=== PATIENT | male | born 1950 | race Caucasian/White ===

== ENCOUNTER → 2019-12-22 | Outpatient (CLI) | payer OTHER ==
[2019-12-22 08:01] LABS: Basophils # (auto) 0.1 10 ^3/uL (0-0.2); Basophils % (auto) 1.1 % (0.0-2.0); Eosinophils # (auto) 0.2 10 ^3/uL (0-0.8); Eosinophils % (auto) 3.8 % (0.0-7.0); Hemoglobin 15.9 g/dL (13.5-17.5); Lymphocytes # (auto) 1.4 10 ^3/uL (0.4-5.4); Lymphocytes % (auto) 29.4 % (10.0-50.0); Mean Corpuscular Hemoglobin 31.8 pg (28.0-32.0); Mean Corpuscular Hgb Conc. 33.7 g/dL (32.0-36.0); Mean Corpuscular Volume 94.2 fL (80.0-100.0); Monocytes # (auto) 0.6 10 ^3/uL (0-1.3); Monocytes % (auto) 12.3 % (0.0-12.0); Neutrophils # (auto) 2.5 10 ^3/uL (1.6-8.6); Neutrophils % (auto) 53.4 % (37.0-80.0); Nucleated Red Blood Cells % 0.1 %; Platelet Count (auto) 182 10^3/uL (140-450); Red Blood Cells 4.99 10^6/uL (4.5-5.90); White Blood Cell 4.7 10^3/uL (4.4-10.8)
[2019-12-22 08:37] LABS: Albumin 3.6 g/dL (3.4-5.0); Calcium 8.7 mg/dL (8.5-10.1); Potassium 4.1 mmol/L (3.5-5.1)
[2019-12-22 08:43] LABS: BUN/Creatinine Ratio 15.1; Bilirubin, Total 0.6 mg/dL (0.2-1.0); Total Protein 6.9 g/dL (6.4-8.2)
== END | disposition home or self-care (01) ==
LOC: LAB 07:22
PROVIDERS: ATTEND Internal Medicine
DX: Z12.5 Encounter for screening for malignant neoplasm of prostate (principal); E78.5 Hyperlipidemia, unspecified; Z00.00 Encounter for general adult medical examination without abnormal findings; Z86.39 Personal history of other endocrine, nutritional and metabolic disease
CPT/HCPCS: 36415; 80053; 80061; 80198; 83036; 84153; 84403; 85025; 86677

== ENCOUNTER → 2020-01-18 | Outpatient (CLI) | payer OTHER ==
[2020-01-19 16:46] LABS: Hepatitis B Surface Antigen Negative (Negative); Hepatitis C Antibody Negative (Negative)
[2020-01-19 16:47] LABS: Hepatitis A Ab IgM Negative; Hepatitis B Core IgM Negative
== END | disposition home or self-care (01) ==
LOC: LAB 10:43
PROVIDERS: ATTEND Internal Medicine
DX: R94.5 Abnormal results of liver function studies (principal)
CPT/HCPCS: 36415; 80074; 84443

== ENCOUNTER → 2020-05-07 | Outpatient (CLI) | payer OTHER ==
[2020-05-07 09:38] LABS: Potassium 3.9 mmol/L (3.5-5.1)
[2020-05-07 09:43] LABS: Albumin 3.6 g/dL (3.4-5.0); BUN/Creatinine Ratio 10.7; Calcium 8.7 mg/dL (8.5-10.1)
[2020-05-07 09:45] LABS: Bilirubin, Total 0.7 mg/dL (0.2-1.0); Total Protein 7.2 g/dL (6.4-8.2)
== END | disposition home or self-care (01) ==
LOC: LAB 07:59
PROVIDERS: ATTEND Internal Medicine
DX: E11.9 Type 2 diabetes mellitus without complications (principal); E78.5 Hyperlipidemia, unspecified; R94.5 Abnormal results of liver function studies
CPT/HCPCS: 36415; 80053; 80061; 83036

== ENCOUNTER → 2020-06-01 | Outpatient (CLI) | payer OTHER ==
[2020-06-01 08:27] LABS: Albumin 3.6 g/dL (3.4-5.0)
[2020-06-01 08:32] LABS: Bilirubin, Direct 0.3 mg/dL (0-0.2); Bilirubin, Total 0.9 mg/dL (0.2-1.0); Total Protein 7.3 g/dL (6.4-8.2)
== END | disposition home or self-care (01) ==
LOC: LAB 07:37
PROVIDERS: ATTEND Internal Medicine
DX: E11.9 Type 2 diabetes mellitus without complications (principal); E78.5 Hyperlipidemia, unspecified
CPT/HCPCS: 36415; 80061; 80076; 82043

== ENCOUNTER → 2020-06-29 | Day surgery (SDC) | payer OTHER ==
[2020-06-26 10:19] LABS: Basophils # (auto) 0 10 ^3/uL (0-0.2); Basophils % (auto) 0.7 % (0.0-2.0); Eosinophils # (auto) 0.2 10 ^3/uL (0-0.8); Eosinophils % (auto) 3.9 % (0.0-7.0); Hematocrit 46.2 % (41.0-53.0); Hemoglobin 16.3 g/dL (13.5-17.5); Lymphocytes # (auto) 1.6 10 ^3/uL (0.4-5.4); Mean Corpuscular Hemoglobin 33.3 pg (28.0-32.0); Mean Corpuscular Hgb Conc. 35.3 g/dL (32.0-36.0); Mean Corpuscular Volume 94.4 fL (80.0-100.0); Monocytes # (auto) 0.7 10 ^3/uL (0-1.3); Monocytes % (auto) 10.7 % (0.0-12.0); Neutrophils # (auto) 3.6 10 ^3/uL (1.6-8.6); Neutrophils % (auto) 58.7 % (37.0-80.0); Platelet Count (auto) 180 10^3/uL (140-450); White Blood Cell 6.2 10^3/uL (4.4-10.8)
[2020-06-26 10:23] LABS: INR 1.14 (0.9-1.15); Partial Thromboplastin Time 28.2 sec (23.0-31.2)
[~2020-06-29] VITALS: Ht 177.8 cm; Wt 98.4 kg
[~2020-06-29] MED LIST: ATOR40TA52 PO; LIDOCAINE VISCOUS 2% 15ML UD ONE; PANT40TA2 PO; SODIUM CHLORIDE LOCK 10 ML ONE
[2020-06-29] MEDS: fentaNYL CITRATE 100 MCG/2 ML VL ONE ×3 (13:56→14:10)
[2020-06-29] MEDS: MIDAZOLAM HCL 5 MG/ML-1ML VIAL ONE ×3 (13:56→14:10)
[2020-06-29] MEDS: diphenhdrAMINE HCL 50 MG/1 ML VL ONE ×2 (13:59→14:20)
[2020-06-29 15:10] VITALS: BP 123/82
== END | disposition home or self-care (01) ==
LOC: GI 11:53
PROVIDERS: ATTEND Internal Medicine Gastroenterology
DX: Z12.11 Encounter for screening for malignant neoplasm of colon (principal); K31.89 Other diseases of stomach and duodenum; K63.5 Polyp of colon; K44.9 Diaphragmatic hernia without obstruction or gangrene; K21.9 Gastro-esophageal reflux disease without esophagitis; K31.9 Disease of stomach and duodenum, unspecified; Z20.822 Contact with and (suspected) exposure to COVID-19; Z79.899 Other long term (current) drug therapy; Z98.890 Other specified postprocedural states; Z87.891 Personal history of nicotine dependence; Z68.31 Body mass index [BMI] 31.0-31.9, adult
CPT/HCPCS: 36415; 43239; 45385; 85025; 85610; 85730; J1200; J2250; J3010; J7030; U0003; 99152; 99153

== ENCOUNTER → 2020-08-01 | Outpatient (CLI) | payer OTHER ==
[~2020-08-01] MED LIST changes: -LIDOCAINE VISCOUS 2% 15ML UD ONE; -SODIUM CHLORIDE LOCK 10 ML ONE
[2020-08-01 09:25] LABS: Albumin 3.7 g/dL (3.4-5.0)
[2020-08-01 09:28] LABS: Bilirubin, Direct 0.2 mg/dL (0-0.2); Bilirubin, Total 0.7 mg/dL (0.2-1.0); Total Protein 7.1 g/dL (6.4-8.2)
== END | disposition home or self-care (01) ==
LOC: LAB 08:44
PROVIDERS: ATTEND Internal Medicine
DX: E11.9 Type 2 diabetes mellitus without complications (principal); E78.5 Hyperlipidemia, unspecified
CPT/HCPCS: 36415; 80061; 80076

== ENCOUNTER → 2020-10-26 | Outpatient (CLI) | payer OTHER ==
[2020-10-26 09:37] LABS: Basophils # (auto) 0 10 ^3/uL (0-0.2); Basophils % (auto) 0.5 % (0.0-2.0); Eosinophils # (auto) 0.1 10 ^3/uL (0-0.8); Eosinophils % (auto) 1.6 % (0.0-7.0); Hematocrit 45.7 % (41.0-53.0); Hemoglobin 15.8 g/dL (13.5-17.5); Lymphocytes # (auto) 1.1 10 ^3/uL (0.4-5.4); Lymphocytes % (auto) 28.5 % (10.0-50.0); Mean Corpuscular Hemoglobin 32.5 pg (28.0-32.0); Mean Corpuscular Hgb Conc. 34.6 g/dL (32.0-36.0); Mean Corpuscular Volume 93.9 fL (80.0-100.0); Monocytes # (auto) 0.4 10 ^3/uL (0-1.3); Neutrophils # (auto) 2.2 10 ^3/uL (1.6-8.6); Neutrophils % (auto) 58.4 % (37.0-80.0); Platelet Count (auto) 119 10^3/uL (140-450); Red Blood Cells 4.86 10^6/uL (4.5-5.90); Red Cell Distribution Width 12.9 % (11.8-14.3); White Blood Cell 3.8 10^3/uL (4.4-10.8)
[2020-10-26 10:04] LABS: INR 1.13 (0.9-1.15)
[2020-10-26 10:27] LABS: Potassium 3.8 mmol/L (3.5-5.1)
[2020-10-26 10:35] LABS: Albumin 3.5 g/dL (3.4-5.0); Bilirubin, Total 0.8 mg/dL (0.2-1.0); Calcium 8.4 mg/dL (8.5-10.1)
== END | disposition home or self-care (01) ==
LOC: LAB 08:48
PROVIDERS: ATTEND Internal Medicine
DX: E11.9 Type 2 diabetes mellitus without complications (principal); R94.5 Abnormal results of liver function studies; R10.13 Epigastric pain
CPT/HCPCS: 36415; 80053; 82105; 82140; 82728; 83036; 85025; 85049; 85610; 86038

== ENCOUNTER → 2021-08-02 | Outpatient (CLI) | payer OTHER ==
[2021-08-02 08:46] LABS: Albumin 3.6 g/dL (3.4-5.0); Potassium 3.9 mmol/L (3.5-5.1)
[2021-08-02 08:54] LABS: BUN/Creatinine Ratio 13.5; Bilirubin, Total 0.9 mg/dL (0.2-1.0); Calcium 8.7 mg/dL (8.5-10.1); Total Protein 7.1 g/dL (6.4-8.2)
== END | disposition home or self-care (01) ==
LOC: LAB 07:18
PROVIDERS: ATTEND Internal Medicine
DX: Z12.11 Encounter for screening for malignant neoplasm of colon (principal); E11.9 Type 2 diabetes mellitus without complications; Z00.00 Encounter for general adult medical examination without abnormal findings; E78.5 Hyperlipidemia, unspecified
CPT/HCPCS: 36415; 80053; 80061; 82043; 84153

== ENCOUNTER → 2021-08-05 | Outpatient (CLI) | payer OTHER | END | disposition home or self-care (01) | LOC: LAB 12:52 | PROVIDERS: ATTEND Internal Medicine | DX: Z12.11 Encounter for screening for malignant neoplasm of colon (principal); E11.9 Type 2 diabetes mellitus without complications; E78.5 Hyperlipidemia, unspecified; Z00.00 Encounter for general adult medical examination without abnormal findings | CPT/HCPCS: 82270 ==

== ENCOUNTER → 2021-08-07 | Outpatient (CLI) | payer OTHER ==
[2021-08-07 12:16] LABS: Amylase 75 U/L (25-115); Lipase 143 U/L (73-393)
== END | disposition home or self-care (01) ==
LOC: LAB 10:41
PROVIDERS: ATTEND Internal Medicine
DX: E11.9 Type 2 diabetes mellitus without complications (principal); E78.5 Hyperlipidemia, unspecified; K74.60 Unspecified cirrhosis of liver
CPT/HCPCS: 36415; 82150; 83690

== ENCOUNTER → 2021-10-31 | Outpatient (CLI) | payer OTHER ==
[2021-10-31 08:35] LABS: Basophils # (auto) 0 10 ^3/uL (0-0.2); Basophils % (auto) 0.6 % (0.0-2.0); Eosinophils # (auto) 0.1 10 ^3/uL (0-0.8); Eosinophils % (auto) 2.6 % (0.0-7.0); Hematocrit 45.5 % (41.0-53.0); Hemoglobin 15.1 g/dL (13.5-17.5); Lymphocytes # (auto) 1.3 10 ^3/uL (0.4-5.4); Lymphocytes % (auto) 32.4 % (10.0-50.0); Mean Corpuscular Hemoglobin 30.6 pg (28.0-32.0); Mean Corpuscular Hgb Conc. 33.2 g/dL (32.0-36.0); Mean Corpuscular Volume 92.3 fL (80.0-100.0); Monocytes # (auto) 0.4 10 ^3/uL (0-1.3); Neutrophils # (auto) 2.2 10 ^3/uL (1.6-8.6); Neutrophils % (auto) 54.4 % (37.0-80.0); Nucleated Red Blood Cells % 0.1 %; Red Blood Cells 4.93 10^6/uL (4.5-5.90); Red Cell Distribution Width 13.5 % (11.8-14.3)
[2021-10-31 08:42] LABS: INR 1.18 (0.9-1.15)
[2021-10-31 08:56] LABS: Albumin 3.5 g/dL (3.4-5.0); Calcium 8.4 mg/dL (8.5-10.1)
[2021-10-31 09:00] LABS: Bilirubin, Total 0.7 mg/dL (0.2-1.0); Total Protein 6.8 g/dL (6.4-8.2)
== END | disposition home or self-care (01) ==
LOC: LAB 08:04
PROVIDERS: ATTEND Internal Medicine
DX: E11.8 Type 2 diabetes mellitus with unspecified complications (principal); E78.5 Hyperlipidemia, unspecified
CPT/HCPCS: 36415; 80053; 80061; 82105; 83036; 85025; 85610

== ENCOUNTER → 2022-05-01 | Outpatient (CLI) | payer OTHER ==
[2022-05-01 09:29] LABS: Cholesterol 123 mg/dL (< 200); HDL Cholesterol 28 mg/dL (40-59); LDL Cholesterol 65 mg/dL (< 100); Triglycerides 167 mg/dL (< 150)
== END | disposition home or self-care (01) ==
LOC: LAB 08:12
PROVIDERS: ATTEND Internal Medicine
DX: E11.9 Type 2 diabetes mellitus without complications (principal)
CPT/HCPCS: 36415; 80061; 83036

== ENCOUNTER → 2022-07-01 | Day surgery (SDC) | payer OTHER ==
[2022-06-27 10:38] LABS: Basophils # (auto) 0 10 ^3/uL (0-0.2); Basophils % (auto) 0.5 % (0.0-2.0); Eosinophils # (auto) 0.1 10 ^3/uL (0-0.8); Eosinophils % (auto) 1.6 % (0.0-7.0); Hemoglobin 15.7 g/dL (13.5-17.5); Lymphocytes % (auto) 23.1 % (10.0-50.0); Mean Corpuscular Hemoglobin 32.2 pg (28.0-32.0); Mean Corpuscular Hgb Conc. 34.1 g/dL (32.0-36.0); Mean Corpuscular Volume 94.5 fL (80.0-100.0); Monocytes # (auto) 0.5 10 ^3/uL (0-1.3); Monocytes % (auto) 10.8 % (0.0-12.0); Neutrophils # (auto) 2.8 10 ^3/uL (1.6-8.6); Red Blood Cells 4.87 10^6/uL (4.5-5.90); Red Cell Distribution Width 13.3 % (11.8-14.3); White Blood Cell 4.4 10^3/uL (4.4-10.8)
[2022-06-27 11:46] LABS: BUN/Creatinine Ratio 19.3; Bilirubin, Total 0.9 mg/dL (0.2-1.0); Total Protein 7.2 g/dL (6.4-8.2)
[2022-06-30 15:40] LABS: INR 1.18 (0.9-1.15); Partial Thromboplastin Time 28.8 sec (24.6-33.4)
[~2022-07-01] VITALS: Ht 175.3 cm; Wt 101.6 kg
[~2022-07-01] MED LIST changes: +EMPA1TAB PO; +EZET10TA22 PO; +LATA0.0019 OP; +LOSA25TA38 PO; +METF-370 PO; +SILD100T57 PO; +SUCR1TAB22 OR; +ZOLP5TAB5 PO
[2022-07-01] MEDS: diphenhdrAMINE HCL 50 MG/1 ML VL ONE ×2 (11:13→11:14)
[2022-07-01] MEDS: fentaNYL CITRATE 100 MCG/2 ML VL ONE ×2 (11:13→11:16)
[2022-07-01] MEDS: MIDAZOLAM HCL 2MG/2ML 2ml VIAL (1mg/ml) ONE ×2 (11:13→11:16)
[2022-07-01 12:10] VITALS: BP 130/81
== END | disposition home or self-care (01) ==
LOC: GI 09:39
PROVIDERS: ATTEND Internal Medicine Gastroenterology
DX: Z12.11 Encounter for screening for malignant neoplasm of colon (principal); K57.30 Diverticulosis of large intestine without perforation or abscess without bleeding; K64.0 First degree hemorrhoids; K63.5 Polyp of colon; K62.1 Rectal polyp; Z20.822 Contact with and (suspected) exposure to COVID-19; Z86.010 Personal history of colon polyps; E78.5 Hyperlipidemia, unspecified; E11.9 Type 2 diabetes mellitus without complications; Z79.899 Other long term (current) drug therapy; Z79.84 Long term (current) use of oral hypoglycemic drugs
CPT/HCPCS: 36415; 45380; 45385; 80053; 82962; 85025; 85610; 85730; J1200; J2250; J3010; J7030; U0003; 99152; 99153

== ENCOUNTER → 2022-07-31 | Outpatient (CLI) | payer OTHER | END | disposition home or self-care (01) | LOC: LAB 07:30 | PROVIDERS: ATTEND Internal Medicine | DX: Z00.00 Encounter for general adult medical examination without abnormal findings (principal); E11.9 Type 2 diabetes mellitus without complications; E78.5 Hyperlipidemia, unspecified; N40.0 Benign prostatic hyperplasia without lower urinary tract symptoms | CPT/HCPCS: 36415; 82043; 83036; 84153 ==

== ENCOUNTER → 2022-10-17 | Outpatient (CLI) | payer OTHER ==
[~2022-10-17] MED LIST changes: -LATA0.0019 OP; +LATA0.008 OP; +LOSA25TA15 PO; -LOSA25TA38 PO
== END | disposition home or self-care (01) ==
LOC: LAB 10:16
PROVIDERS: ATTEND Family Medicine
DX: L82.1 Other seborrheic keratosis (principal)
CPT/HCPCS: 88302

== ENCOUNTER → 2023-02-09 | Outpatient (CLI) | payer OTHER ==
[2023-02-09 08:49] LABS: Anion Gap 8 (5-15); Carbon Dioxide 25 mmol/L (20-30); Chloride 106 mmol/L (98-107); Potassium 4.3 mmol/L (3.5-5.1); Sodium 139 mmol/L (136-145)
[2023-02-09 08:50] LABS: Calcium 9.2 mg/dL (8.5-10.1)
[2023-02-09 08:53] LABS: Creatinine, Urine 92.44 mg/dL (30.0-125.0)
[2023-02-09 08:55] LABS: BUN/Creatinine Ratio 10.8 (10.0-20.0); Blood Urea Nitrogen 9 mg/dL (9-23); Cholesterol 115 mg/dL (< 200); Glucose 180 mg/dL (74-106); Triglycerides 107 mg/dL (< 150)
[2023-02-09 08:56] LABS: LDL Cholesterol 61 mg/dL (< 100)
[2023-02-09 08:57] LABS: HDL Cholesterol 34 mg/dL (40-59)
== END | disposition home or self-care (01) ==
LOC: LAB 07:46
PROVIDERS: ATTEND Internal Medicine
DX: E11.9 Type 2 diabetes mellitus without complications (principal); E78.5 Hyperlipidemia, unspecified
CPT/HCPCS: 36415; 80048; 80061; 82043; 82570; 83036

== ENCOUNTER → 2023-08-13 | Outpatient (CLI) | payer OTHER ==
[~2023-08-13] MED LIST changes: +LOSA-533 PO; -LOSA25TA15 PO; +SILD100T PO; -SILD100T57 PO; -SUCR1TAB22 OR; +SUCR1TAB31 OR
[2023-08-13 07:16] LABS: Basophils # (auto) 0 10 ^3/uL (0-0.2); Basophils % (auto) 0.7 % (0.0-2.0); Eosinophils # (auto) 0.2 10 ^3/uL (0-0.8); Eosinophils % (auto) 3.8 % (0.0-7.0); Lymphocytes # (auto) 1.6 10 ^3/uL (0.4-5.4); Lymphocytes % (auto) 33.8 % (10.0-50.0); Mean Corpuscular Hemoglobin 31.3 pg (28.0-32.0); Mean Corpuscular Hgb Conc. 33.2 g/dL (32.0-36.0); Mean Corpuscular Volume 94.3 fL (80.0-100.0); Monocytes # (auto) 0.6 10 ^3/uL (0-1.3); Neutrophils # (auto) 2.3 10 ^3/uL (1.6-8.6); Neutrophils % (auto) 49.7 % (37.0-80.0); Nucleated Red Blood Cells % 0.2 %; Red Blood Cells 5.09 10^6/uL (4.5-5.90); Red Cell Distribution Width 13.7 % (11.8-14.3); White Blood Cell 4.6 10^3/uL (4.4-10.8)
[2023-08-13 07:56] LABS: Alanine Aminotransferase 55 U/L (7-40); Albumin 4.2 g/dL (3.2-4.8); Alkaline Phosphatase 89 U/L (46-116); Anion Gap 10 (5-15); Aspartate Aminotransferase 40 U/L (13-40); BUN/Creatinine Ratio 11.4 (10.0-20.0); Bilirubin, Total 0.9 mg/dL (0.2-1.0); Blood Urea Nitrogen 9 mg/dL (9-23); Calcium 9.3 mg/dL (8.5-10.1); Carbon Dioxide 24 mmol/L (20-30); Chloride 107 mmol/L (98-107); Glucose 143 mg/dL (74-106); Potassium 4.1 mmol/L (3.5-5.1); Sodium 141 mmol/L (136-145); Total Protein 6.3 g/dL (5.7-8.2)
== END | disposition home or self-care (01) ==
LOC: LAB 07:02
PROVIDERS: ATTEND Internal Medicine
DX: Z00.00 Encounter for general adult medical examination without abnormal findings (principal); E11.9 Type 2 diabetes mellitus without complications; E78.5 Hyperlipidemia, unspecified; R77.2 Abnormality of alphafetoprotein
CPT/HCPCS: 36415; 80053; 82105; 83036; 85025

== ENCOUNTER 2024-01-22 09:26 | Day surgery (SDC) | payer OTHER ==
[2024-01-18 12:11] LABS: Basophils # (auto) 0 10 ^3/uL (0-0.2); Eosinophils # (auto) 0.1 10 ^3/uL (0-0.8); Eosinophils % (auto) 4.1 % (0.0-7.0); Hematocrit 47.9 % (41.0-53.0); Hemoglobin 16.6 g/dL (13.5-17.5); Lymphocytes # (auto) 0.9 10 ^3/uL (0.4-5.4); Lymphocytes % (auto) 25.9 % (10.0-50.0); Mean Corpuscular Hemoglobin 32.4 pg (28.0-32.0); Mean Corpuscular Hgb Conc. 34.7 g/dL (32.0-36.0); Mean Corpuscular Volume 93.3 fL (80.0-100.0); Monocytes # (auto) 0.4 10 ^3/uL (0-1.3); Monocytes % (auto) 11.3 % (0.0-12.0); Neutrophils # (auto) 2.1 10 ^3/uL (1.6-8.6); Neutrophils % (auto) 57.7 % (37.0-80.0); Nucleated Red Blood Cells % 0.1 %; Platelet Count (auto) 94 10^3/uL (140-450); Red Blood Cells 5.13 10^6/uL (4.5-5.90); Red Cell Distribution Width 14.2 % (11.8-14.3); White Blood Cell 3.6 10^3/uL (4.4-10.8)
[2024-01-18 12:29] LABS: INR 1.18 (0.9-1.15); Prothrombin Time 12.4 sec (9.3-11.8)
[2024-01-18 13:01] LABS: Alanine Aminotransferase 51 U/L (7-40); Albumin 4.2 g/dL (3.2-4.8); Alkaline Phosphatase 121 U/L (46-116); Anion Gap 6 (5-15); Aspartate Aminotransferase 41 U/L (13-40); BUN/Creatinine Ratio 14.1 (10.0-20.0); Bilirubin, Total 0.9 mg/dL (0.2-1.0); Blood Urea Nitrogen 11 mg/dL (9-23); Calcium 9.2 mg/dL (8.7-10.4); Carbon Dioxide 24 mmol/L (20-30); Chloride 106 mmol/L (98-107); Glucose 255 mg/dL (74-106); Potassium 3.8 mmol/L (3.5-5.1); Sodium 136 mmol/L (136-145); Total Protein 6.8 g/dL (5.7-8.2)
[~2024-01-22] VITALS: Ht 175.3 cm; Wt 97.5 kg
[~2024-01-22 09:26] MED LIST changes: -EZET10TA22 PO; +FAMO-12 PO; +OMEP20TA PO; -PANT40TA2 PO; -SUCR1TAB31 OR; -ZOLP5TAB5 PO
[2024-01-22] MEDS ORDERED: SODIUM CHLORIDE LOCK 10 ML ONE (09:43)
[2024-01-22 11:11] VITALS: O2SAT 100
[2024-01-22] MEDS: LIDOCAINE VISCOUS 2% 15ML UD ONE (11:13)
[2024-01-22] MEDS: fentaNYL CITRATE 100 MCG/2 ML VL ONE (11:14)
[2024-01-22] MEDS: diphenhdrAMINE HCL 50 MG/1 ML VL ONE (11:14)
[2024-01-22] MEDS: MIDAZOLAM HCL 5 MG/ML-1ML VIAL ONE (11:14)
[2024-01-22 11:29] VITALS: PULSE 66; RESP 16; TEMP 97.9; O2SAT 95
[2024-01-22 11:45] VITALS: BP 118/70; PULSE 63; RESP 20; O2SAT 97
== END 2024-01-22 12:05 | disposition home or self-care (01) ==
LOC: GI 09:26
PROVIDERS: ATTEND Internal Medicine Gastroenterology
DX: K21.9 Gastro-esophageal reflux disease without esophagitis (principal); K29.50 Unspecified chronic gastritis without bleeding; K44.9 Diaphragmatic hernia without obstruction or gangrene; K31.89 Other diseases of stomach and duodenum; K25.9 Gastric ulcer, unspecified as acute or chronic, without hemorrhage or perforation; I10 Essential (primary) hypertension; E11.9 Type 2 diabetes mellitus without complications; E78.5 Hyperlipidemia, unspecified; Z87.891 Personal history of nicotine dependence; Z79.84 Long term (current) use of oral hypoglycemic drugs; Z79.899 Other long term (current) drug therapy
CPT/HCPCS: 36415; 43239; 80053; 82962; 85025; 85610; 85730; 88305; 88312; 88342; J1200; J2250; J3010; J7030

== ENCOUNTER → 2024-03-11 | Outpatient (CLI) | payer OTHER ==
[2024-03-11 08:06] LABS: Bilirubin, Direct 0.2 mg/dL (<0.3); Bilirubin, Total 0.7 mg/dL (0.2-1.0); Total Protein 6.7 g/dL (5.7-8.2)
== END | disposition home or self-care (01) ==
LOC: LAB 07:10
PROVIDERS: ATTEND Internal Medicine
DX: E78.5 Hyperlipidemia, unspecified (principal)
CPT/HCPCS: 36415; 80061; 80076; 84153

== ENCOUNTER 2024-05-27 14:04 | Emergency (ER) | payer OTHER ==
[~2024-05-27] VITALS: Ht 175.3 cm; Wt 100.6 kg
--- NOTE | 2024-05-27 14:57 | ED.PDOC ---
Musculoskeletal HPI Comments Sylvain Oliveira is a 73-year-old male patient who presents to ED with chief complaint of right lower extremity swelling which started on Thursday, which proceeded tingling sensation from right hip towards lower limb which started. Patient went to urgent care, wound do suggested to complete ultrasound of lower limb DVT. Denies fever, chills, chest pain, dyspnea, nausea, vomiting, diarrhea, trauma, recent travel, problems mobilizing, bleeding, sick contacts and motor or sensory deficits Past medical history: Hypertension, prediabetes, gastritis, fatty liver, Graves disease which required medication for less than one year has been without medication since 2011, colon polyps Surgical history: Colonoscopy three years ago Family history: Colon cancer in mother and hypertension mother Social history: Lives in [place] with and son. With tobacco abuse, quit 29 years ago (20 pack-year history of smoking). Occasional alcohol use (two drinks per week, normally one glass of wine). Denies current tobacco, alcohol and other drug abuse Home medication: Atorvastatin, metformin, omeprazole, losartan Chief Complaint: Lower Extremity Time Seen by MD: 14:24 Reviewed Notes: Medications Allergies: Coded Allergies: NO KNOWN ALLERGIES (Unverified , 06/26/20) Home Meds Active Scripts Apixaban Base (Eliquis Starter Pack) 5 Mg Tab, 5 MG PO BID for 30 Days, #60 TAB Prov:DELMER CAICEDO RESIDENT 05/27/24 Reported Medications Omeprazole (Gnp Omeprazole) 20 Mg Tab, 1 TAB PO DAILY, #90 TAB 1 Refill 01/20/24 Famotidine (Famotidine) 20 Mg Tab, 20 MG PO BID for 30 Days, MG 01/20/24 Latanoprost (LATANOPROST) 0.005 % Doris, 0.005 % OP QPM, ML 06/27/22 Sildenafil Citrate (Viagra) 100 Mg Tab, 100 MG PO PRN, TAB 06/27/22 Losartan Potassium (Losartan Potassium) 25 Mg Tab, 25 MG PO DAILY, TAB 06/27/22 Empagliflozin (Jardiance) 10 Mg Tab, 10 MG PO QAM, TAB 06/27/22 Metformin Hydrochloride (Metformin Hcl) 500 Mg Tab, 500 MG PO BID, TAB 06/27/22 Atorvastatin Calcium (ATORVASTATIN CALCIUM) 40 Mg Tab, 1 TAB PO DAILY, #30 TAB 5 Refills 06/26/20 Mode of Arrival: Ambulatory Physical Exam General Appearance: No Apparent Distress, Normal HEENT: Normal ENT Inspection, Pharynx Normal, TMs Normal, Other (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)) Neck: Full Range of Motion, Non-Tender, Normal, Normal Inspection Respiratory: Chest Non-Tender, Lungs Clear, No Accessory Muscle Use, No Respiratory Distress, Normal Breath Sounds Cardiovascular: No Edema, No JVD, No Murmur, No Gallop, Normal Peripheral Pulses, Regular Rate/Rhythm Breast Exam: Deferred Gastrointestinal: No Organomegaly, Non Tender, No Pulsatile Mass, Normal Bowel Sounds, Soft Genitalia: Deferred Pelvic: Deferred Rectal: Deferred Extremities: No calf tenderness, Normal capillary refill, Normal range of motion, Non-tender, Swelling (Lower right limb) Neurologic: Alert, river guide II-XII nml as Tested, No Motor Deficits, Normal Affect, Normal Mood, No Sensory Deficits Cerebellar Function: Normal Reflexes: Normal Skin: Dry, Warm, Other (Erythema in lower right limb) Lymphatic: No Adenopathy Was a procedure done? Was a procedure done?: No Differential Diagnosis EXT Differential Diagnosis: Cellulitis, Deep Vein Thrombosis X-Ray, Labs, Meds, VS Vital Signs Date Time Temp Pulse Resp B/P (MAP) Pulse Ox O2 Delivery O2 Flow Rate FiO2 05/27/24 14:18 99.7 94 20 119/80 (93) 96 X-Ray, Labs, Meds, VS Comment Obtain ultrasound of the lower limb which shows nonocclusive DVT in popliteal vein. Have discussed findings with Dr. Page (PCP) Time of 1ST Reevaluation: 15:43 Reevaluation 1ST: Unchanged Consultation: PCP Patient Education/Counseling: Diagnosis, Treatment, Prognosis Family Education/Counseling: Diagnosis, Treatment, Prognosis Departure 1 Departure Time of Disposition: 15:43 Impression: Primary Impression: Non-occlusive thrombus Additional Impression: Deep vein thrombosis Disposition: HOME / SELF CARE / HOMELESS Condition: Stable Referrals: BRITTNEE PAGE MD Additional Instructions: Reviewed vital signs, ultrasound findings (nonocclusive right-sided popliteal DVT). Indicated one dose of subcutaneous enoxaparin during ER visit. Have discussed with patient and PCP (Dr. Page) of findings. Decided to continuous outpatient with follow-up with PCP on June 02 at 2:45 p.m.. Have explained to patient how to take medication (for 1st week starting today and during the p.m. he should take 10 mg p.o. b.i.d. of apixaban until the 03 of June, where he will decrease dose of apixaban to 5 mg p.o. b.i.d. during the p.m. of the ). Patient hemodynamically stable, asymptomatic from PE, in condition to be discharged. Was granted under optimal medical therapy (explained dose adjustment of apixaban in the 1st week 10 mg p.o. b.i.d., switching to 5 mg p.o. b.i.d. afterwards), gave advice on healthy lifestyle habits, and follow up with PCP (Dr. aPge on June 02 at 2:45 p.m.). e-Prescriptions Apixaban Base (Eliquis Starter Pack) 5 Mg Tab 5 MG PO BID for 30 Days, #60 TAB Prov: DELMER CAICEDO RESIDENT 05/27/24 Critical Care Note Critical Care Time?: No Stability Stability form required: No Heart Score Heart Score: Heart Score Response (Comments) Value History N/A 0 EKG N/A 0 Age N/A 0 Risk Factors N/A 0 Troponin N/A 0 Total 0 DELMER CAICEDO RESIDENT May 27, 2024 14:57
[2024-05-27] MEDS ORDERED: APIX5TAB4 PO (15:20)
--- NOTE | 2024-05-27 15:24 | DVH ---
CHEST RADIOGRAPH Indication: Lower limb swelling Technique: Single frontal view of the chest was obtained Comparison: None FINDINGS: Lines and Tubes: None Lungs: No focal consolidation. Pleura: No effusion. No pneumothorax. Cardiomediastinal contours: Unremarkable Bones: No acute osseous abnormality. IMPRESSION: No acute cardiopulmonary disease.
--- NOTE | 2024-05-27 15:28 | DVH ---
Procedure: US RT Lower DVT Study Date and Requested Time: 05/27/2024 02:52 PM History: Right lower limb edema Comparison: None Technique: Multiple high resolution juarez-scale images with and without compression obtained of the [facility] lower extremity veins, including the common femoral vein, deep femoral vein, proximal mid and dis maritza superficial femoral vein, and popliteal vein. Additional limited images of the greater saphenous vein also obtained. Augmentation performed as indicated. Color and spectral doppler flow images obtai yamil as indicated. Findings: There is deep vein thrombosis within the right popliteal vein. Otherwise, the right lower extremity veins are patent. Impression: Deep vein thrombosis of the right popliteal vein . Data Entry Processor documented notification of resident Jan of findings.
[2024-05-27 15:40] VITALS: BP 140/96; PULSE 88; RESP 16; TEMP 98.4; O2SAT 95
[2024-05-27] MEDS: ENOXAPARIN SOD 100 MG/1 ML SYRINGE SC ONE (15:44)
[2024-05-27 15:54] LABS: Basophils # (auto) 0 10 ^3/uL (0-0.2); Basophils % (auto) 0.8 % (0.0-2.0); Eosinophils # (auto) 0.3 10 ^3/uL (0-0.8); Eosinophils % (auto) 5.6 % (0.0-7.0); Hematocrit 48.6 % (41.0-53.0); Hemoglobin 16.6 g/dL (13.5-17.5); Lymphocytes # (auto) 0.9 10 ^3/uL (0.4-5.4); Lymphocytes % (auto) 16.3 % (10.0-50.0); Mean Corpuscular Hgb Conc. 34.2 g/dL (32.0-36.0); Mean Corpuscular Volume 93.6 fL (80.0-100.0); Monocytes # (auto) 0.7 10 ^3/uL (0-1.3); Monocytes % (auto) 12.6 % (0.0-12.0); Neutrophils # (auto) 3.4 10 ^3/uL (1.6-8.6); Neutrophils % (auto) 64.7 % (37.0-80.0); Nucleated Red Blood Cells % 0.1 %; Platelet Count (auto) 110 10^3/uL (140-450); Red Cell Distribution Width 13.8 % (11.8-14.3); White Blood Cell 5.2 10^3/uL (4.4-10.8)
[2024-05-27 16:09] LABS: Albumin 4.5 g/dL (3.2-4.8); Anion Gap 7 (5-15); Aspartate Aminotransferase 32 U/L (13-40); BUN/Creatinine Ratio 11.8 (10.0-20.0); Bilirubin, Total 1.1 mg/dL (0.2-1.0); Blood Urea Nitrogen 11 mg/dL (9-23); Calcium 9.4 mg/dL (8.7-10.4); Carbon Dioxide 27 mmol/L (20-31); Chloride 104 mmol/L (98-107); Magnesium 1.7 mg/dL (1.6-2.6); Phosphorus 3.2 mg/dL (2.4-5.1); Potassium 3.8 mmol/L (3.5-5.1); Sodium 138 mmol/L (136-145); Total Protein 6.8 g/dL (5.7-8.2)
[2024-05-27 16:10] LABS: INR 1.19 (0.9-1.15); Partial Thromboplastin Time 26.6 SEC (24.5-34.5); Prothrombin Time 12.4 sec (9.3-11.8)
[2024-05-27 16:17] LABS: Alanine Aminotransferase 42 U/L (7-40); Alkaline Phosphatase 128 U/L (46-116); Glucose 241 mg/dL (74-106)
[2024-05-27] MEDS ORDERED: ENOXAPARIN SOD 100 MG/1 ML SYRINGE SC SCH (22:00)
== END 2024-05-27 16:09 | disposition home or self-care (01) ==
LOC: ER 14:04
DX: I82.431 Acute embolism and thrombosis of right popliteal vein (principal); Z79.899 Other long term (current) drug therapy
CPT/HCPCS: 36415; 71045; 80053; 83605; 83735; 84100; 84443; 85025; 85610; 85730; 93971; 96372; 99285; J1650

== ENCOUNTER 2024-10-18 10:40 | Day surgery (SDC) | payer OTHER ==
[2024-10-12 10:48] LABS: Basophils # (auto) 0 10 ^3/uL (0-0.2); Eosinophils # (auto) 0.1 10 ^3/uL (0-0.8); Mean Corpuscular Hemoglobin 21.8 pg (28.0-32.0); Monocytes # (auto) 0.3 10 ^3/uL (0-1.3)
[2024-10-12 10:50] LABS: Basophils % (auto) 0.7 % (0.0-2.0); Eosinophils % (auto) 3.8 % (0.0-7.0); Hematocrit 31.5 % (41.0-53.0); Hemoglobin 9.8 g/dL (13.5-17.5); Lymphocytes # (auto) 0.7 10 ^3/uL (0.4-5.4); Lymphocytes % (auto) 23.8 % (10.0-50.0); Mean Corpuscular Hgb Conc. 31.2 g/dL (32.0-36.0); Mean Corpuscular Volume 69.9 fL (80.0-100.0); Monocytes % (auto) 11.9 % (0.0-12.0); Neutrophils # (auto) 1.6 10 ^3/uL (1.6-8.6); Neutrophils % (auto) 59.8 % (37.0-80.0); Red Cell Distribution Width 17.8 % (11.8-14.3); White Blood Cell 2.7 10^3/uL (4.4-10.8)
[2024-10-12 10:55] LABS: INR 1.16 (0.9-1.15); Partial Thromboplastin Time 26.3 SEC (24.5-34.5); Platelet Count (auto) 114 10^3/uL (140-450); Prothrombin Time 12.1 sec (9.3-11.8)
[2024-10-12 10:58] LABS: Alanine Aminotransferase 29 U/L (7-40); Albumin 4.2 g/dL (3.2-4.8); Alkaline Phosphatase 75 U/L (46-116); Anion Gap 10 (5-15); Aspartate Aminotransferase 27 U/L (13-40); BUN/Creatinine Ratio 12.3 (10.0-20.0); Bilirubin, Total 0.9 mg/dL (0.2-1.0); Blood Urea Nitrogen 10 mg/dL (9-23); Calcium 9.2 mg/dL (8.7-10.4); Carbon Dioxide 24 mmol/L (20-31); Chloride 108 mmol/L (98-107); Glucose 148 mg/dL (74-106); Potassium 4.1 mmol/L (3.5-5.1); Sodium 142 mmol/L (136-145); Total Protein 6.5 g/dL (5.7-8.2)
[~2024-10-18] VITALS: Ht 175.3 cm; Wt 97.5 kg
[~2024-10-18 10:40] MED LIST changes: +DAPA1TAB4 PO; -EMPA1TAB PO; +FENO1CAP3 OR; +MISC-2030 PO; +NYSTOIN4 EX; -OMEP20TA PO; +SUCR1SUS5 PO; +[UNRECOGNIZED DRUG - CODE] PO
[2024-10-18] MEDS ORDERED: NALOXONE HCL 0.4 MG/ML VIAL ONE (12:19)
[2024-10-18] MEDS ORDERED: FLUMAZENIL 0.1 MG/ML INJ 10ML MDV IV ONE (12:19)
[2024-10-18] MEDS ORDERED: SODIUM CHLORIDE LOCK 10 ML ONE (12:20)
[2024-10-18 13:26] VITALS: PULSE 68; RESP 16; O2SAT 96
[2024-10-18] MEDS: MIDAZOLAM HCL 5 MG/ML-1ML VIAL ONE (13:30)
[2024-10-18] MEDS: diphenhdrAMINE HCL 50 MG/1 ML VL ONE (13:30)
[2024-10-18] MEDS: fentaNYL CITRATE 100 MCG/2 ML VL ONE (13:30)
[2024-10-18 13:58] VITALS: TEMP 97; O2SAT 100
[2024-10-18 14:13] VITALS: BP 120/80; PULSE 68; RESP 18; O2SAT 93
--- NOTE | 2024-10-18 14:46 | DVHOP2 ---
Operative Report DATE OF OPERATION: 10/18/24 PROCEDURE: Colonoscopy with hot snare polypectomy. PREOPERATIVE INDICATION: The patient is a 73 -year-old male undergoing colonoscopy for surveillance with personal history of colon polyps POSTOPERATIVE DIAGNOSES: 1. Five less than 1 cm benign-appearing transverse colon polyps were seen and removed completely, three by hot snare polypectomy and two by cold biopsy forceps 2. Patient had a 5-6 mm benign-appearing ascending colon polyp that was seen and removed by hot snare polypectomy and the specimens were retrieved 3. There were three less than 5 mm benign-appearing descending colon polyps two removed by snare polypectomy and one by cold biopsy forceps 4. Trace internal hemorrhoids otherwise completely normal colonoscopy examination up to the cecum and terminal ileum PROCEDURE PERFORMED BY: Guanako Singer M.D. SCOPE: Olympus videocolonoscope. ASA CLASS: 2 PREOPERATIVE MEDICATIONS: Versed 3 mg, Fentanyl 75 mcg, Benadryl 50 mg PROCEDURE IN DETAIL: After obtaining an informed consent, the patient was placed on left lateral decubitus position. He was then sedated with the above medications. A rectal examination was performed that was normal. The colonoscope was then passed through the anus into the rectosigmoid and through the descending, transverse, and ascending colon up to the cecum with visualization of the appendiceal orifice, base of the cecum and the ileocecal valve. The colonoscope was then withdrawn. The distal 5-10 cm of the terminal ileum were normal In the ascending colon there was one 5-6 mm benign-appearing polyp that was seen and removed by hot snare polypectomy The transverse colon there were multiple polyps about five in number, three were removed by hot snare polypectomy and two by cold biopsy forceps In the descending colon there were three less than 5 mm benign-appearing polyps, two were removed by hot snare polypectomy and one by cold biopsy forceps On retroflexion and straight on view he had trace internal hemorrhoids The patient tolerated the procedure well without difficulty. WITHDRAWAL TIME: 10 minutes QUALITY OF THE PREP: [place] Bowel Prep score: 9. COMPLICATIONS : None SPECIMENS: Transverse colon polyps Ascending colon polyp Descending colon polyps DISPOSITION: Stable D/C to home PLAN: 1. Repeat colonoscopy based on biopsy result likely in 1-1/2-2 years 2. Resume GI soft diet advance as tolerated 3. Increase fluid and fiber intake 4. Outpatient follow up with me in 2-4 weeks to review results and discuss further management GUANAKO SINGER MD Oct 18, 2024 14:46
== END 2024-10-18 14:30 | disposition home or self-care (01) ==
LOC: GI 10:40
PROVIDERS: ATTEND Internal Medicine Gastroenterology
DX: Z12.11 Encounter for screening for malignant neoplasm of colon (principal); D12.3 Benign neoplasm of transverse colon; D12.2 Benign neoplasm of ascending colon; D12.4 Benign neoplasm of descending colon; K64.8 Other hemorrhoids; K21.9 Gastro-esophageal reflux disease without esophagitis; I50.9 Heart failure, unspecified; E11.9 Type 2 diabetes mellitus without complications; Z87.891 Personal history of nicotine dependence; Z79.84 Long term (current) use of oral hypoglycemic drugs
CPT/HCPCS: 36415; 45380; 45385; 80053; 82962; 85025; 85610; 85730; 88305; J1200; J2250; J3010; J7030; 99152; 99153

== ENCOUNTER → 2024-11-11 | Outpatient (CLI) | payer OTHER ==
[2024-11-11 08:33] LABS: Alanine Aminotransferase 37.0 U/L (7-40); Alkaline Phosphatase 91.0 U/L (46-116); Total Protein 6.7 g/dL (5.7-8.2)
[2024-11-11 08:34] LABS: Albumin 4.4 g/dL (3.2-4.8); Bilirubin, Direct 0.3 mg/dL (<0.3); Bilirubin, Total 0.7 mg/dL (0.2-1.0)
[2024-11-11 11:14] LABS: Prostate Specific Antigen 0.38 ng/mL (0.0-4.0)
[2024-11-11 11:18] LABS: Ferritin 4.4 ng/mL (22-322)
== END | disposition home or self-care (01) ==
LOC: LAB 06:52
PROVIDERS: ATTEND Internal Medicine
DX: R77.2 Abnormality of alphafetoprotein (principal); K76.0 Fatty (change of) liver, not elsewhere classified
CPT/HCPCS: 36415; 80076; 81241; 82270; 82728; 84153; 84443; 85302; 85306; 86301; 86800

== ENCOUNTER 2024-11-29 07:07 | Outpatient (CLI) | payer OTHER ==
[2024-11-29 08:00] LABS: Alanine Aminotransferase 26 U/L (7-40); Albumin 4.2 g/dL (3.2-4.8); Alkaline Phosphatase 68 U/L (46-116); Anion Gap 12 (5-15); BUN/Creatinine Ratio 13.2 (10.0-20.0); Blood Urea Nitrogen 12 mg/dL (9-23); Calcium 9.7 mg/dL (8.7-10.4); Carbon Dioxide 23 mmol/L (20-31); Chloride 107 mmol/L (98-107); Cholesterol 115 mg/dL (< 200); Potassium 3.8 mmol/L (3.5-5.1); Sodium 142 mmol/L (136-145); Total Protein 6.3 g/dL (5.7-8.2); Triglycerides 114 mg/dL (< 150)
[2024-11-29 08:01] LABS: Bilirubin, Total 0.6 mg/dL (0.2-1.0)
[2024-11-29 08:02] LABS: Hematocrit 32.1 % (41.0-53.0); Hemoglobin 9.8 g/dL (13.5-17.5); Mean Corpuscular Hemoglobin 20.4 pg (28.0-32.0); Mean Corpuscular Volume 67.1 fL (80.0-100.0); Nucleated Red Blood Cells % 0.1 %
[2024-11-29 08:05] LABS: Glucose 149 mg/dL (74-106); HDL Cholesterol 31 mg/dL (40-59)
== END 2024-11-29 17:00 | disposition home or self-care (01) ==
LOC: LAB 07:07
PROVIDERS: ATTEND Student in an Organized Health Care Education/Training Program
DX: I10 Essential (primary) hypertension (principal); E11.65 Type 2 diabetes mellitus with hyperglycemia; E78.5 Hyperlipidemia, unspecified; I82.431 Acute embolism and thrombosis of right popliteal vein
CPT/HCPCS: 36415; 80053; 80061; 83036; 84443; 85025

== ENCOUNTER 2024-12-01 10:01 | Outpatient (CLI) | payer OTHER ==
[~2024-12-01] VITALS: Ht 175.3 cm; Wt 97.5 kg
[2024-12-01] MEDS: REGADENOSON 0.4 MG/5 ML SYRG IV ONE ×2 (11:23→11:26)
--- NOTE | 2024-12-04 13:45 | DVHSR ---
APPROVED REPORT Exam: Nuclear Stress Test BMI: 0 Stress Test Details Stress Test: Pharmacologic stress testing performed using 0.4 mg of regadenoson per 5 mL given IV ov er 10 seconds. HR Resting HR: 68 bpmMax Heart Rate (APMHR): 148.559496 bpm Max HR Achieved: 77 bpmTarget HR (85% APMHR): 125.963959 bpm % of APMHR: 52.03 Recovery HR: 69 bpm BP Resting BP: 117/61 mmHg Recovery BP: 111/62 mmHg ECG Resting ECG: Sinus Rhythm Nurse Comments Recieved pt. from [facility]. A/Ox4 on RA. Connected to email operations manager, VS stable. PIV flushes well. Re viewed POC. Pt. verbalized understanding of procedure including risks and side effects, agrees for st ress testing. Lexiscan stress test performed per protocol. [facility] tech administered Cardiolite. Pt. tolerated well . Pt. stable, no change on exam. VS returned to baseline. Transferred to [facility] via wheelchair w/ te ch. Stress ECG Conclusion normal lvef normal perfusion scan no ischemia noted lvef 62% NM EXAM: Myocardial Perfusion REST/STRESS Imaging Protocol: Rest Tc-99m/Stress Tc-99m 1 day Resting Data Rest SPECT myocardial perfusion imaging was performed in supine position 45 minutes following the int ravenous injection of 10.8 mCi of Tc-99m Sestamibi. Time of rest injection: 1015 Time of rest imagin Administration Route: IV Administration Site: Left Hand Pharmacologic Stress Pharmacologic stress test was performed by injecting Regadenoson 0.4 mg IV push followed by the intra venous injection of 29.2 mCi of Tc-99m Sestamibi. Time of stress injection: 1110 Time of stress imagin Administration Route: IV Administration Site: Left Hand Gated Stress SPECT was performed 50 minutes after stress injection. The images were gated to evaluate regional wall motion and calculate left ventricular ejection fracti on. Nuclear Conclusion Nuclear Findings: negative for ischemia normal lvef normal perfusion scan no ischemia noted lvef 62%
== END 2024-12-01 17:00 | disposition home or self-care (01) ==
LOC: XYW 10:01
PROVIDERS: ATTEND Student in an Organized Health Care Education/Training Program
DX: R06.02 Shortness of breath (principal); I25.10 Atherosclerotic heart disease of native coronary artery without angina pectoris
CPT/HCPCS: 78452; 93017; A9500; J2785

== ENCOUNTER 2025-03-07 09:07 | Outpatient (CLI) | payer OTHER ==
[2025-03-07 10:10] LABS: Alanine Aminotransferase 39 U/L (7-40); Alkaline Phosphatase 71 U/L (46-116); Anion Gap 10 (5-15); BUN/Creatinine Ratio 7.4 (10.0-20.0); Carbon Dioxide 24 mmol/L (20-31); Chloride 105 mmol/L (98-107); Potassium 3.9 mmol/L (3.5-5.1); Sodium 139 mmol/L (136-145); Total Protein 6.7 g/dL (5.7-8.2)
[2025-03-07 10:11] LABS: Albumin 4.1 g/dL (3.2-4.8); Bilirubin, Total 1.1 mg/dL (0.2-1.0)
[2025-03-07 10:13] LABS: Blood Urea Nitrogen 6 mg/dL (9-23); Calcium 8.6 mg/dL (8.7-10.4); Glucose 160 mg/dL (74-106)
[2025-03-07 10:15] LABS: Hemoglobin 9.7 g/dL (13.5-17.5); Nucleated Red Blood Cells % 0.1 %
[2025-03-07 10:16] LABS: Hematocrit 32.1 % (41.0-53.0); Mean Corpuscular Hemoglobin 19.6 pg (28.0-32.0); Mean Corpuscular Volume 64.9 fL (80.0-100.0)
[2025-03-07 11:21] LABS: Anisocytosis Slight; Ovalocytes FEW
[2025-03-07 16:17] LABS: Total Iron Binding Capacity 405.0 ug/dL (250-425)
[2025-03-07 16:18] LABS: Iron 30.0 ug/dL (65-175)
[2025-03-07 16:21] LABS: Ferritin 6.0 ng/mL (22-322)
== END 2025-03-07 17:00 | disposition home or self-care (01) ==
LOC: LAB 09:07
PROVIDERS: ATTEND Internal Medicine
DX: E11.8 Type 2 diabetes mellitus with unspecified complications (principal); D61.818 Other pancytopenia; D50.9 Iron deficiency anemia, unspecified; K76.0 Fatty (change of) liver, not elsewhere classified; K74.60 Unspecified cirrhosis of liver; I82.509 Chronic embolism and thrombosis of unspecified deep veins of unspecified lower extremity
CPT/HCPCS: 36415; 80053; 82728; 82746; 83540; 83550; 85025

== ENCOUNTER 2025-03-15 06:29 | Outpatient (CLI) | payer OTHER ==
[2025-03-15 09:12] LABS: Iron 31.0 ug/dL (65-175); Total Iron Binding Capacity 468.0 ug/dL (250-425)
== END 2025-03-15 17:00 | disposition home or self-care (01) ==
LOC: LAB 06:29
PROVIDERS: ATTEND Internal Medicine
DX: E11.65 Type 2 diabetes mellitus with hyperglycemia (principal); D64.9 Anemia, unspecified; R77.2 Abnormality of alphafetoprotein
CPT/HCPCS: 36415; 82105; 82728; 83036; 83540; 83550

== ENCOUNTER 2025-04-25 07:06 | Outpatient (CLI) | payer OTHER ==
[2025-04-25 07:58] LABS: Hematocrit 36.2 % (41.0-53.0); Hemoglobin 10.9 g/dL (13.5-17.5); Nucleated Red Blood Cells % 0.1 %
[2025-04-25 08:00] LABS: Mean Corpuscular Hemoglobin 20.9 pg (28.0-32.0); Mean Corpuscular Volume 69.4 fL (80.0-100.0)
[2025-04-25 08:50] LABS: Total Iron Binding Capacity 384.0 ug/dL (250-425)
[2025-04-25 08:55] LABS: Iron 46.0 ug/dL (65-175)
== END 2025-04-25 17:00 | disposition home or self-care (01) ==
LOC: LAB 07:06
PROVIDERS: ATTEND Internal Medicine
DX: D61.810 Antineoplastic chemotherapy induced pancytopenia (principal); Z00.01 Encounter for general adult medical examination with abnormal findings
CPT/HCPCS: 36415; 82728; 83540; 83550; 85025